=== PATIENT | male | born 1965 | race Caucasian/White ===

== ENCOUNTER 2019-02-09 13:48 | Emergency (ER) | payer MEDICAID, OTHER ==
[~2019-02-09] VITALS: Ht 175.3 cm; Wt 77.3 kg
[~2019-02-09 13:48] MED LIST: OMEP20CA4
[2019-02-09] MEDS ORDERED: FAMOTIDINE 20 MG TABLET PO ONE (15:00)
[2019-02-09 15:58] LABS: BASOPHILS % (AUTO) 1.6 % (0.0-2.0); EOSINOPHILS % (AUTO) 0.5 % (1.0-6.0); HEMATOCRIT 43.4 % (41-53); HEMOGLOBIN 14.2 g/dL (13.5-17.5); MEAN CORPUSCULAR HEMOGLOBIN 28.8 pg (26.0-34.0); MEAN CORPUSCULAR HGB CONC 32.6 G/dL (31.0-37.0); MEAN CORPUSCULAR VOLUME 88 fL (80-100); MONOCYTES # (AUTO) 0.6 K/uL (0.1-1.0); MONOCYTES % (AUTO) 10.1 % (2.0-9.0); NEUTROPHILS # (AUTO) 3.9 K/uL (1.8-7.7); NEUTROPHILS % (AUTO) 69.8 % (40.0-70.0); PLATELET COUNT (AUTO) 163 K/uL (150-450); RED BLOOD CELL COUNT(AUTO) 4.92 MIL/uL (4.50-5.90); RED CELL DISTRIBUTION WIDTH 19.5 % (11.5-14.5)
[2019-02-09 16:09] LABS: ANION GAP 11 mmol/L (8-16); CALCIUM, TOTAL 8.8 mg/dL (8.8-10.5); CARBON DIOXIDE 27 mmol/L (22-29); CHLORIDE 102 mmol/L (98-107); CREATININE 0.84 mg/dL (0.60-1.30); GLOMERULAR FILTR. RATE CALC > 60 mL/min (>60); GLUCOSE,RANDOM 92 mg/dL (70-110); POTASSIUM 3.6 mmol/L (3.5-5.1); SODIUM SERUM 140 mmol/L (136-145); UREA NITROGEN, BLOOD 10 mg/dL (7-18)
[2019-02-09 16:16] LABS: ALANINE AMINOTRANSFERASE 320 U/L (12-78); ALBUMIN 3.5 g/dL (3.4-5.0); ALKALINE PHOSPHATASE 199 U/L (46-116); ASPARTATE AMINOTRANSFERASE 210 U/L (15-37); BILIRUBIN,TOTAL 1.1 mg/dL (0.1-1.0); LIPASE 407 U/L (73-393); TOTAL PROTEIN, SERUM 8.2 g/dL (6.4-8.2)
[2019-02-09 17:00] VITALS: BP 145/88
== END 2019-02-09 17:07 | disposition home or self-care (01) ==
LOC: EMS 13:48
DX: K21.9 Gastro-esophageal reflux disease without esophagitis (principal); L25.9 Unspecified contact dermatitis, unspecified cause; R79.89 Other specified abnormal findings of blood chemistry; F10.10 Alcohol abuse, uncomplicated; Y90.9 Presence of alcohol in blood, level not specified
CPT/HCPCS: 93005

== ENCOUNTER 2019-03-29 18:48 | Emergency (ER) | payer SELFPAY ==
[~2019-03-29] VITALS: Ht 172.7 cm; Wt 69.5 kg
[2019-03-29 20:29] LABS: GLUCOSE,POINT OF CARE 123 MG/DL (70-110)
[2019-03-30] MEDS ORDERED: KETOROLAC TROMETHAMINE 60 MG/2 ML VIAL IM ONE
[2019-03-30 03:30] VITALS: BP 134/76
== END 2019-03-30 04:33 | disposition home or self-care (01) ==
LOC: EMS 18:51
DX: S00.83XA Contusion of other part of head, initial encounter (principal); F10.129 Alcohol abuse with intoxication, unspecified; Y90.8 Blood alcohol level of 240 mg/100 ml or more; Y04.0XXA Assault by unarmed brawl or fight, initial encounter; Y93.89 Activity, other specified; Y92.89 Other specified places as the place of occurrence of the external cause; Y99.8 Other external cause status
CPT/HCPCS: 36415; 70450; 82962; 96372; 99284; G0480; J1885

== ENCOUNTER 2020-12-08 09:23 | Emergency (ER) | payer OTHER ==
[~2020-12-08] VITALS: Ht 172.7 cm; Wt 68.2 kg
[2020-12-08 10:11] LABS: BASOPHILS % (AUTO) 0.5 % (0.0-2.0); EOSINOPHILS % (AUTO) 0.3 % (1.0-6.0); HEMATOCRIT 34.4 % (41-53); HEMOGLOBIN 10.8 g/dL (13.5-17.5); LYMPHOCYTES # (AUTO) 0.4 K/uL (1.0-4.8); LYMPHOCYTES % (AUTO) 7.8 % (22.0-44.0); MEAN CORPUSCULAR HEMOGLOBIN 27.1 pg (26.0-34.0); MEAN CORPUSCULAR HGB CONC 31.4 G/dL (31.0-37.0); MEAN CORPUSCULAR VOLUME 86 fL (80-100); MONOCYTES # (AUTO) 0.1 K/uL (0.1-1.0); MONOCYTES % (AUTO) 2.6 % (2.0-9.0); NEUTROPHILS # (AUTO) 4.7 K/uL (1.8-7.7); PLATELET COUNT (AUTO) 199 K/uL (150-450); RED BLOOD CELL COUNT(AUTO) 3.99 MIL/uL (4.50-5.90); RED CELL DISTRIBUTION WIDTH 19.6 % (11.5-14.5)
[2020-12-08 10:14] LABS: NEUTROPHILS % (AUTO) 88.8 % (40.0-70.0)
[2020-12-08 10:20] LABS: ANION GAP 13 mmol/L (8-16); CARBON DIOXIDE 26 mmol/L (22-29); CHLORIDE 99 mmol/L (98-107); CREATININE 1.04 mg/dL (0.60-1.30); GLOMERULAR FILTR. RATE CALC > 60 mL/min (>60); GLUCOSE,RANDOM 239 mg/dL (70-110); POTASSIUM 3.1 mmol/L (3.5-5.1); SODIUM SERUM 138 mmol/L (136-145); UREA NITROGEN, BLOOD 7 mg/dL (7-18)
[2020-12-08 10:26] LABS: ALANINE AMINOTRANSFERASE 57 U/L (12-78); ALBUMIN 3.6 g/dL (3.4-5.0); ALKALINE PHOSPHATASE 175 U/L (46-116); ASPARTATE AMINOTRANSFERASE 96 U/L (15-37); BILIRUBIN,TOTAL 1.2 mg/dL (0.1-1.0); LIPASE 227 U/L (73-393); TOTAL PROTEIN, SERUM 8.2 g/dL (6.4-8.2)
[2020-12-08] MEDS ORDERED: PB/HYOSCY/ATR/SCOP/LIDO/MAALOX 55 ML BOTTLE PO ONE (10:30)
[2020-12-08] MEDS ORDERED: ChlordiazePOXIDE HCL 25 MG CAPSULE PO ONE (10:30)
[2020-12-08] MEDS ORDERED: POTASSIUM CHLORIDE 20 MEQ ER TABLET PO ONE (11:00)
[2020-12-08 11:28] VITALS: BP 140/80
== END 2020-12-08 11:30 | disposition home or self-care (01) ==
LOC: EMS 09:23
DX: F10.20 Alcohol dependence, uncomplicated (principal); Y90.6 Blood alcohol level of 120-199 mg/100 ml
CPT/HCPCS: 36415; 80053; 83690; 84484; 85025; 93005; 99284; G0480

== ENCOUNTER 2022-02-07 17:39 | Emergency (ER) | payer OTHER ==
[~2022-02-07] VITALS: Ht 170.2 cm; Wt 75.0 kg
[2022-02-07] MEDS ORDERED: SPIR50TA27 PO (17:50)
[2022-02-07] MEDS ORDERED: THIA100T80 PO (17:50)
[2022-02-07] MEDS ORDERED: AMLO-257 PO (17:50)
[2022-02-07] MEDS ORDERED: FOLI-130 PO (17:50)
[2022-02-07] MEDS ORDERED: CARV6 PO (17:50)
[2022-02-07 19:10] LABS: ANION GAP 12 mmol/L (8-16); CALCIUM, TOTAL 8.7 mg/dL (8.8-10.5); CARBON DIOXIDE 20 mmol/L (22-29); CHLORIDE 109 mmol/L (98-107); CREATININE 0.74 mg/dL (0.60-1.30); GLOMERULAR FILTR. RATE CALC > 60 mL/min (>60); GLUCOSE,RANDOM 64 mg/dL (70-110); POTASSIUM 3.7 mmol/L (3.5-5.1); SODIUM SERUM 141 mmol/L (136-145); UREA NITROGEN, BLOOD 12 mg/dL (7-18)
[2022-02-07 19:11] LABS: BASOPHILS % (AUTO) 0.4 % (0.0-2.0); EOSINOPHILS % (AUTO) 4.6 % (1.0-6.0); HEMOGLOBIN 10.8 g/dL (13.5-17.5); LYMPHOCYTES # (AUTO) 0.8 K/uL (1.0-4.8); LYMPHOCYTES % (AUTO) 20.7 % (22.0-44.0); MEAN CORPUSCULAR HEMOGLOBIN 25.5 pg (26.0-34.0); MEAN CORPUSCULAR HGB CONC 31.9 G/dL (31.0-37.0); MEAN CORPUSCULAR VOLUME 80 fL (80-100); MONOCYTES # (AUTO) 0.3 K/uL (0.1-1.0); MONOCYTES % (AUTO) 9.1 % (2.0-9.0); NEUTROPHILS # (AUTO) 2.5 K/uL (1.8-7.7); NEUTROPHILS % (AUTO) 65.2 % (40.0-70.0); RED BLOOD CELL COUNT(AUTO) 4.26 MIL/uL (4.50-5.90); RED CELL DISTRIBUTION WIDTH 18.9 % (11.5-14.5)
[2022-02-07 19:15] LABS: ALANINE AMINOTRANSFERASE 41 U/L (12-78); ALKALINE PHOSPHATASE 125 U/L (46-116); ASPARTATE AMINOTRANSFERASE 43 U/L (15-37); BILIRUBIN,TOTAL 0.9 mg/dL (0.1-1.0); TOTAL PROTEIN, SERUM 7.2 g/dL (6.4-8.2)
[2022-02-07 19:34] LABS: PLATELET COUNT (AUTO) 72 K/uL (150-450)
[2022-02-07 19:39] LABS: COVID AG,FIA SOURCE NASOPHARYNGEAL
[2022-02-07 20:07] VITALS: BP 120/90
== END 2022-02-07 23:42 | disposition home or self-care (01) ==
LOC: EMS 17:40
DX: F32.9 Major depressive disorder, single episode, unspecified (principal); F10.10 Alcohol abuse, uncomplicated; D69.6 Thrombocytopenia, unspecified; I10 Essential (primary) hypertension; Y90.0 Blood alcohol level of less than 20 mg/100 ml; Z79.899 Other long term (current) drug therapy; Z20.822 Contact with and (suspected) exposure to COVID-19
CPT/HCPCS: 36415; 80053; 85025; 87426; 99283; G0480

== ENCOUNTER 2024-05-16 07:29 | Inpatient (IN) | payer OTHER ==
[~2024-05-16] VITALS: Ht 170.2 cm; Wt 85.3 kg
[~2024-05-16 07:29] MED LIST changes: +AMLO-257 PO; +FOLI-130 PO; -OMEP20CA4; +THIA100T80 PO
[2024-05-16] MEDS ORDERED: LORazepam 2 MG/ML VIAL ONE (08:02)
[2024-05-16] MEDS: SODIUM CHLORIDE 0.9% 1,000 ML IV ONE (08:07)
[2024-05-16] MEDS: LORazepam 2 MG/ML VIAL IVP ONE ×3 (08:07→12:57)
[2024-05-16 08:21] LABS: BASOPHILS % (AUTO) 0.2 % (0.0-2.0); EOSINOPHILS % (AUTO) 0.2 % (1.0-6.0); HEMATOCRIT 45.3 % (41-53); HEMOGLOBIN 15.2 g/dL (13.5-17.5); LYMPHOCYTES # (AUTO) 0.9 K/uL (1.0-4.8); LYMPHOCYTES % (AUTO) 7.4 % (22.0-44.0); MEAN CORPUSCULAR HEMOGLOBIN 28.7 pg (26.0-34.0); MEAN CORPUSCULAR HGB CONC 33.6 G/dL (31.0-37.0); MEAN CORPUSCULAR VOLUME 85 fL (80-100); MONOCYTES # (AUTO) 1.2 K/uL (0.1-1.0); MONOCYTES % (AUTO) 9.1 % (2.0-9.0); NEUTROPHILS # (AUTO) 10.6 K/uL (1.8-7.7); NEUTROPHILS % (AUTO) 83.1 % (40.0-70.0); PLATELET COUNT (AUTO) 124 K/uL (150-450); RED BLOOD CELL COUNT(AUTO) 5.31 MIL/uL (4.50-5.90); RED CELL DISTRIBUTION WIDTH 14.6 % (11.5-14.5); WHITE BLOOD COUNT (AUTO) 12.7 K/uL (4.5-11.0)
[2024-05-16 08:29] LABS: ANION GAP 18 mmol/L (8-16); CALCIUM, TOTAL 8.6 mg/dL (8.8-10.5); CARBON DIOXIDE 20 mmol/L (22-29); CHLORIDE 90 mmol/L (98-107); CREATININE 1.11 mg/dL (0.60-1.30); GLOMERULAR FILTR. RATE CALC > 60 mL/min (>60); GLUCOSE,RANDOM 122 mg/dL (70-110); POTASSIUM 4.1 mmol/L (3.5-5.1); SODIUM SERUM 128 mmol/L (136-145); UREA NITROGEN, BLOOD 10 mg/dL (7-18)
[2024-05-16 08:31] LABS: ALCOHOL, BLOOD (SERUM) < 3 mg/dL (0-10)
[2024-05-16 08:37] LABS: ALANINE AMINOTRANSFERASE 44 U/L (12-78); ALBUMIN 3.8 g/dL (3.4-5.0); ALKALINE PHOSPHATASE 94 U/L (46-116); ASPARTATE AMINOTRANSFERASE 92 U/L (15-37); BILIRUBIN,TOTAL 4.7 mg/dL (0.1-1.0); TOTAL PROTEIN, SERUM 7.6 g/dL (6.4-8.2)
[2024-05-16 09:09] LABS: ALCOHOL, URINE DRUG SCREEN NEGATIVE (NEGATIVE); AMPHET/METH SCREEN,URINE NEGATIVE (NEGATIVE); BENZODIAZEPINES SCREEN,URINE NEGATIVE (NEGATIVE); CANNABINOID SCREEN,URINE NEGATIVE (NEGATIVE); COCAINE SCREEN,URINE NEGATIVE (NEGATIVE); METHADONE SCREEN, URINE NEGATIVE (NEGATIVE); OPIATE SCREEN,URINE NEGATIVE (NEGATIVE); PHENCYCLIDINE SCREEN,URINE NEGATIVE (NEGATIVE)
[2024-05-16] MEDS: LevETIRAcetam 1,000 MG in DEXTROSE 5%-WATER 100 ML IV ONE (09:16)
[2024-05-16 09:19] LABS: BARBITURATE SCREEN, URINE NEGATIVE (NEGATIVE)
[2024-05-16] MEDS: LACTULOSE 200 GM/300 ML RECTAL SOLUTION PR ONE (10:35)
[2024-05-16 12:54] VITALS: BP 124/72; PULSE 74; RESP 18; TEMP 98.5; O2SAT 99
[2024-05-16] MEDS ORDERED: LORazepam 2 MG/ML VIAL IVP PRN (14:00)
[2024-05-16] MEDS ORDERED: MORPHINE SULFATE 2 MG/ML SYRINGE IVP PRN (14:00)
[2024-05-16] MEDS ORDERED: ChlordiazePOXIDE HCL 25 MG CAPSULE PO PRN (14:00)
[2024-05-16] MEDS ORDERED: MAGNESIUM HYDROXIDE SUSPENSION 30 ML UDCUP PO PRN (14:00)
[2024-05-16] MEDS ORDERED: BISACODYL 10 MG RECTAL RECTAL SUPPOSITORY PR PRN (14:00)
[2024-05-16] MEDS ORDERED: ONDANSETRON HCL 4 MG/2 ML VIAL IVP PRN (14:00)
[2024-05-16] MEDS: 1: MAGNESIUM SULFATE 2 GM, MVI, ADULT NO.1 WITH VIT K 10 ML, THIAMINE 100 MG, FOLIC ACID IV SCH (15:56)
[2024-05-16] MEDS: HEPARIN SODIUM,PORCINE 5,000 UNITS/ML VIAL SQ SCH (16:00)
[2024-05-16 18:50] VITALS: BP 127/82; PULSE 62; RESP 20; O2SAT 99
[2024-05-16 20:48] VITALS: BP 131/68; PULSE 62; RESP 19; O2SAT 98
[2024-05-16] MEDS: DOCUSATE SODIUM 100 MG CAPSULE PO SCH (21:00)
[2024-05-16 21:48] VITALS: BP 121/74; PULSE 64; RESP 19; O2SAT 95
[2024-05-16 22:49] VITALS: BP 120/76; PULSE 60; RESP 19; O2SAT 96
[2024-05-17] MEDS ORDERED: SODIUM CHLORIDE 0.9% 1,000 ML ONE (03:08)
[2024-05-17 06:03] VITALS: BP 106/71; PULSE 60; RESP 19; O2SAT 95
[2024-05-17] MEDS ORDERED: ChlordiazePOXIDE HCL 25 MG CAPSULE PO PRN (07:00)
[2024-05-17 07:20] VITALS: BP 123/55; PULSE 55; RESP 18; TEMP 97.5; O2SAT 100
[2024-05-17 07:20] LABS: ANION GAP 9 mmol/L (8-16); CALCIUM, TOTAL 7.5 mg/dL (8.8-10.5); CARBON DIOXIDE 23 mmol/L (22-29); CHLORIDE 100 mmol/L (98-107); GLOMERULAR FILTR. RATE CALC > 60 mL/min (>60); GLUCOSE,RANDOM 94 mg/dL (70-110); POTASSIUM 3.2 mmol/L (3.5-5.1); SODIUM SERUM 132 mmol/L (136-145); UREA NITROGEN, BLOOD 7 mg/dL (7-18)
[2024-05-17] MEDS: AmLODIPine BESYLATE 5 MG TABLET PO SCH (08:36)
[2024-05-17] MEDS: ChlordiazePOXIDE HCL 25 MG CAPSULE PO SCH (08:36)
[2024-05-17] MEDS: THIAMINE 100 MG TABLET PO SCH (08:37)
[2024-05-17] MEDS: PANTOPRAZOLE SODIUM 40 MG DR TABLET PO SCH (08:37)
[2024-05-17 09:38] LABS: BASOPHILS % (AUTO) 0.1 % (0.0-2.0); EOSINOPHILS % (AUTO) 0.4 % (1.0-6.0); HEMATOCRIT 43.7 % (41-53); HEMOGLOBIN 14.7 g/dL (13.5-17.5); LYMPHOCYTES # (AUTO) 0.6 K/uL (1.0-4.8); LYMPHOCYTES % (AUTO) 10.5 % (22.0-44.0); MEAN CORPUSCULAR HEMOGLOBIN 28.8 pg (26.0-34.0); MEAN CORPUSCULAR HGB CONC 33.6 G/dL (31.0-37.0); MEAN CORPUSCULAR VOLUME 86 fL (80-100); MONOCYTES # (AUTO) 0.6 K/uL (0.1-1.0); MONOCYTES % (AUTO) 9.4 % (2.0-9.0); NEUTROPHILS # (AUTO) 4.9 K/uL (1.8-7.7); NEUTROPHILS % (AUTO) 79.6 % (40.0-70.0); RED BLOOD CELL COUNT(AUTO) 5.11 MIL/uL (4.50-5.90); RED CELL DISTRIBUTION WIDTH 14.3 % (11.5-14.5); WHITE BLOOD COUNT (AUTO) 6.2 K/uL (4.5-11.0)
[2024-05-17 10:17] LABS: PLATELET COUNT (AUTO) 82 K/uL (150-450)
[2024-05-17 11:15] VITALS: BP 105/69; PULSE 74; RESP 18; TEMP 98.3; O2SAT 95
[2024-05-17] MEDS ORDERED: POTASSIUM CHL 10 MEQ/WATER 50 ML IV PRN (12:30)
[2024-05-17] MEDS ORDERED: LACTULOSE 200 GM/300 ML RECTAL SOLUTION PR SCH (12:30)
[2024-05-17 15:03] VITALS: BP 109/76; PULSE 70; RESP 18; TEMP 98.9; O2SAT 96
[2024-05-17] MEDS ORDERED: LACTULOSE 20 GM/30 ML SOLUTION UDCUP PO SCH (16:00)
[2024-05-17] MEDS: LACTULOSE 20 GM/30 ML SOLUTION UDCUP PO SCH (16:37)
[2024-05-17] MEDS: POTASSIUM CHLORIDE 20 MEQ ER TABLET PO PRN (16:38)
[2024-05-17] MEDS: HYDROCODONE/ACETAMINOPHEN 5-325 MG TABLET PO PRN (18:30)
[2024-05-17 19:29] VITALS: BP 126/78; PULSE 77; RESP 18; TEMP 98.2; O2SAT 96
[2024-05-18 00:07] VITALS: BP 124/82; PULSE 74; RESP 18; O2SAT 95
[2024-05-18] MEDS: ZOLPIDEM TARTRATE 5 MG TABLET PO PRN (02:43)
[2024-05-18 06:05] VITALS: BP 119/79; PULSE 75; RESP 18; TEMP 98.3; O2SAT 96
[2024-05-18] MEDS: ACETAMINOPHEN 325 MG TABLET PO PRN (06:25)
[2024-05-18 06:27] LABS: ANION GAP 7 mmol/L (8-16); CALCIUM, TOTAL 7.8 mg/dL (8.8-10.5); CARBON DIOXIDE 25 mmol/L (22-29); CHLORIDE 105 mmol/L (98-107); CREATININE 0.73 mg/dL (0.60-1.30); GLOMERULAR FILTR. RATE CALC > 60 mL/min (>60); GLUCOSE,RANDOM 122 mg/dL (70-110); POTASSIUM 3.8 mmol/L (3.5-5.1); SODIUM SERUM 137 mmol/L (136-145); UREA NITROGEN, BLOOD 7 mg/dL (7-18)
[2024-05-18 06:39] LABS: BASOPHILS % (AUTO) 0.8 % (0.0-2.0); EOSINOPHILS % (AUTO) 2.7 % (1.0-6.0); HEMATOCRIT 41.6 % (41-53); HEMOGLOBIN 13.8 g/dL (13.5-17.5); LYMPHOCYTES # (AUTO) 0.7 K/uL (1.0-4.8); LYMPHOCYTES % (AUTO) 16.8 % (22.0-44.0); MEAN CORPUSCULAR HEMOGLOBIN 28.8 pg (26.0-34.0); MEAN CORPUSCULAR HGB CONC 33.1 G/dL (31.0-37.0); MEAN CORPUSCULAR VOLUME 87 fL (80-100); MONOCYTES # (AUTO) 0.5 K/uL (0.1-1.0); MONOCYTES % (AUTO) 11.6 % (2.0-9.0); NEUTROPHILS # (AUTO) 2.7 K/uL (1.8-7.7); NEUTROPHILS % (AUTO) 68.1 % (40.0-70.0); RED BLOOD CELL COUNT(AUTO) 4.79 MIL/uL (4.50-5.90); RED CELL DISTRIBUTION WIDTH 15.2 % (11.5-14.5)
[2024-05-18 07:38] LABS: PLATELET COUNT (AUTO) 52 K/uL (150-450)
[2024-05-18 07:41] VITALS: BP 113/74; PULSE 71; RESP 18; TEMP 97.7; O2SAT 95
[2024-05-18] MEDS: FOLIC ACID 1 MG TABLET PO SCH (08:30)
[2024-05-18 11:32] VITALS: BP 119/82; PULSE 70; RESP 17; TEMP 97.6; O2SAT 96
[2024-05-18 15:24] VITALS: BP 110/82; PULSE 82; RESP 18; TEMP 97.2; O2SAT 97
[2024-05-18 19:20] VITALS: BP 116/79; PULSE 88; RESP 18; TEMP 98.3; O2SAT 97
[2024-05-19 00:44] VITALS: BP 109/81; PULSE 75; RESP 18; TEMP 98; O2SAT 98
[2024-05-19 03:40] VITALS: BP 121/81; PULSE 70; RESP 18; TEMP 97.7; O2SAT 98
[2024-05-19 06:33] LABS: BASOPHILS % (AUTO) 0.4 % (0.0-2.0); EOSINOPHILS % (AUTO) 7.3 % (1.0-6.0); HEMATOCRIT 42.2 % (41-53); HEMOGLOBIN 14.2 g/dL (13.5-17.5); LYMPHOCYTES # (AUTO) 0.8 K/uL (1.0-4.8); LYMPHOCYTES % (AUTO) 23.3 % (22.0-44.0); MEAN CORPUSCULAR HEMOGLOBIN 29.2 pg (26.0-34.0); MEAN CORPUSCULAR HGB CONC 33.6 G/dL (31.0-37.0); MEAN CORPUSCULAR VOLUME 87 fL (80-100); MONOCYTES # (AUTO) 0.3 K/uL (0.1-1.0); NEUTROPHILS # (AUTO) 2.1 K/uL (1.8-7.7); PLATELET COUNT (AUTO) 71 K/uL (150-450); RED BLOOD CELL COUNT(AUTO) 4.85 MIL/uL (4.50-5.90); RED CELL DISTRIBUTION WIDTH 14.7 % (11.5-14.5); WHITE BLOOD COUNT (AUTO) 3.4 K/uL (4.5-11.0)
[2024-05-19] MEDS ORDERED: ChlordiazePOXIDE HCL 10 MG CAPSULE PO PRN (07:00)
[2024-05-19 07:14] LABS: ANION GAP 11 mmol/L (8-16); CALCIUM, TOTAL 7.9 mg/dL (8.8-10.5); CARBON DIOXIDE 22 mmol/L (22-29); CHLORIDE 102 mmol/L (98-107); GLOMERULAR FILTR. RATE CALC > 60 mL/min (>60); GLUCOSE,RANDOM 95 mg/dL (70-110); POTASSIUM 3.7 mmol/L (3.5-5.1); SODIUM SERUM 135 mmol/L (136-145); UREA NITROGEN, BLOOD 8 mg/dL (7-18)
[2024-05-19 08:00] VITALS: BP 123/89; PULSE 69; RESP 16; TEMP 97.7; O2SAT 95
[2024-05-19] MEDS: ChlordiazePOXIDE HCL 10 MG CAPSULE PO SCH (10:42)
[2024-05-19 12:00] VITALS: BP 105/71; PULSE 77; RESP 16; TEMP 98.2; O2SAT 99
[2024-05-19] MEDS ORDERED: LACT10SO10 PO (12:49)
[2024-05-19] MEDS ORDERED: AMLO-257 PO (12:49)
[2024-05-19] MEDS ORDERED: CHLO10CA7 PO (13:14)
[2024-05-19 16:00] VITALS: BP 105/75; PULSE 76; RESP 16; TEMP 98.2; O2SAT 95
[2024-05-19 20:24] VITALS: BP 122/77; PULSE 80; RESP 18; TEMP 97.6; O2SAT 97
[2024-05-20 00:06] VITALS: BP 102/68; PULSE 71; RESP 16; TEMP 97.9; O2SAT 95
[2024-05-20 05:02] VITALS: BP 108/76; PULSE 70; RESP 16; TEMP 98; O2SAT 97
[2024-05-20] MEDS ORDERED: ChlordiazePOXIDE HCL 10 MG CAPSULE PO PRN (07:00)
[2024-05-20 09:27] VITALS: BP 113/81; PULSE 87; RESP 17; TEMP 97.5; O2SAT 95
[2024-05-20 13:18] VITALS: BP 118/82; PULSE 80; RESP 18; TEMP 97.7; O2SAT 94
[2024-05-20 16:42] VITALS: BP 109/79; PULSE 72; RESP 18; TEMP 97.7; O2SAT 97
== END 2024-05-20 19:55 | DRG 53 ==
LOC: EMS 07:29 → EDH 11:00 → 5N 12:30 → 5S 16:35
PROVIDERS: ADMIT Internal Medicine; ATTEND Internal Medicine
DX: G40.509 Epileptic seizures related to external causes, not intractable, without status epilepticus (principal); J96.91 Respiratory failure, unspecified with hypoxia; G92.8 Other toxic encephalopathy; G04.81 Other encephalitis and encephalomyelitis; K76.82 Hepatic encephalopathy; E72.20 Disorder of urea cycle metabolism, unspecified; E87.1 Hypo-osmolality and hyponatremia; R65.10 Systemic inflammatory response syndrome (SIRS) of non-infectious origin without acute organ dysfunction; I10 Essential (primary) hypertension; D64.9 Anemia, unspecified; F10.229 Alcohol dependence with intoxication, unspecified; F10.239 Alcohol dependence with withdrawal, unspecified; Z59.00 Homelessness unspecified; Z79.899 Other long term (current) drug therapy
CPT/HCPCS: 70450; 71045; 80048; 80076; 80307; 82140; 84132; 85025; 93005; 97116; 97162; 97530; 99285; G0480; J0712; J1644; J2060; J3411; J3475; J3490; J7030; J7060; 36415-L1; 36415-TC

== ENCOUNTER 2025-03-16 19:55 | Emergency (ER) | payer OTHER ==
[~2025-03-16] VITALS: Ht 175.3 cm; Wt 77.3 kg
[~2025-03-16 19:55] MED LIST changes: -AMLO-257 PO; +AMOX-457 PO; +ATOR20TA65 PO; +CALC200T31 PO; +FAMO20 PO; +GABA-534 PO; +LACT10SO9 PO; +LIDO1ADH72 TD; +METO25 PO; +OMEP20CA12 PO; +OXYC5 PO
[2025-03-16 20:31] LABS: PLATELET COUNT (AUTO) 124 K/uL (150-450); RED BLOOD CELL COUNT(AUTO) 4.25 MIL/uL (4.50-5.90); RED CELL DISTRIBUTION WIDTH 15.3 % (11.5-14.5); WHITE BLOOD COUNT (AUTO) 12.9 K/uL (4.5-11.0)
[2025-03-16] MEDS ORDERED: IOHEXOL 350 MG/ML 100 ML VIAL ONE (20:31)
[2025-03-16] MEDS ORDERED: SODIUM CHLORIDE 0.9% 100 ML ONE (20:31)
[2025-03-16] MEDS ORDERED: 0.9% SODIUM CHLORIDE 10 ML SYRINGE IVP ONE (20:31)
[2025-03-16 20:41] LABS: CALCIUM, TOTAL 8.5 mg/dL (8.8-10.5); CREATININE 0.63 mg/dL (0.60-1.30); GLOMERULAR FILTR. RATE CALC > 60 mL/min (>60); GLUCOSE,RANDOM 125 mg/dL (70-110); SODIUM SERUM 134 mmol/L (136-145); UREA NITROGEN, BLOOD 16 mg/dL (7-18)
[2025-03-16 20:46] LABS: ASPARTATE AMINOTRANSFERASE 42.0 U/L (15-37); TOTAL PROTEIN, SERUM 6.7 g/dL (6.4-8.2)
[2025-03-16] MEDS: MORPHINE SULFATE 2 MG/ML SYRINGE IVP ONE (21:11)
[2025-03-17 08:19] VITALS: BP 127/85; PULSE 69; RESP 16; TEMP 98.3; O2SAT 97
== END 2025-03-17 10:18 | disposition short-term general hospital (02) ==
LOC: EMS 19:55
DX: T81.40XA Infection following a procedure, unspecified, initial encounter (principal); K83.8 Other specified diseases of biliary tract; I10 Essential (primary) hypertension; F10.90 Alcohol use, unspecified, uncomplicated; Z86.19 Personal history of other infectious and parasitic diseases; Z90.49 Acquired absence of other specified parts of digestive tract; Z79.899 Other long term (current) drug therapy; Z59.00 Homelessness unspecified; X58.XXXA Exposure to other specified factors, initial encounter; Y90.9 Presence of alcohol in blood, level not specified
CPT/HCPCS: 99285; 74177; 96374; 96375; 80048; 80076; 83690; 85025; 36415; 96376; Q9967; J1171 ×2; J2270; J7050

== ENCOUNTER 2025-07-16 15:47 | Emergency (ER) | payer OTHER ==
[~2025-07-16] VITALS: Ht 175.3 cm; Wt 72.7 kg
[2025-07-16 15:49] VITALS: TEMP 98.5
[2025-07-16 16:51] LABS: CALCIUM, TOTAL 8.4 mg/dL (8.8-10.5); CREATININE 0.56 mg/dL (0.60-1.30); GLOMERULAR FILTR. RATE CALC > 60 mL/min (>60); GLUCOSE,RANDOM 155 mg/dL (70-110); SODIUM SERUM 132 mmol/L (136-145); UREA NITROGEN, BLOOD 14 mg/dL (7-18)
[2025-07-16 16:58] LABS: ALCOHOL, BLOOD (SERUM) < 3 mg/dL (0-10)
[2025-07-16 17:01] LABS: TROPONIN I-HIGH SENSITIVITY 7 ng/L (<76)
[2025-07-16 17:15] LABS: RED BLOOD CELL COUNT(AUTO) 4.64 MIL/uL (4.50-5.90); RED CELL DISTRIBUTION WIDTH 15.7 % (11.5-14.5); WHITE BLOOD COUNT (AUTO) 3.5 K/uL (4.5-11.0)
[2025-07-16 17:26] LABS: PLATELET COUNT (AUTO) 69 K/uL (150-450); RBC MORPHOLOGY COMMENT NORMAL RBC MORPH
[2025-07-16 17:36] LABS: APPEARANCE,URINE CLEAR (CLEAR); GLUCOSE, URINE (UA) NEGATIVE (NEGATIVE); LEUKOCYTE ESTERASE ,URINE NEGATIVE (NEGATIVE); NITRATE,URINE NEGATIVE (NEGATIVE); OCCULT BLOOD,URINE NEGATIVE (NEGATIVE); PH,URINE DRUG SCREEN 6.5 (5.0-8.0); SPECIFIC GRAVITIY, URINE 1.009 (1.003-1.030)
[2025-07-16 17:43] LABS: AMPHET/METH SCREEN,URINE POSITIVE (NEGATIVE); BARBITURATE SCREEN, URINE NEGATIVE (NEGATIVE); CANNABINOID SCREEN,URINE NEGATIVE (NEGATIVE); COCAINE SCREEN,URINE NEGATIVE (NEGATIVE); METHADONE SCREEN, URINE NEGATIVE (NEGATIVE)
[2025-07-16 17:44] LABS: ALCOHOL, URINE DRUG SCREEN NEGATIVE (NEGATIVE)
[2025-07-16 17:48] LABS: SQUAMOUS EPITHELIAL CELL,UR Rare /LPF (None Seen)
[2025-07-16] MEDS ORDERED: HYDR-4062 PO (18:05)
[2025-07-16] MEDS ORDERED: LACT10SO85 PO (18:05)
[2025-07-16 18:18] VITALS: BP 129/86; PULSE 70; RESP 16; O2SAT 97
== END 2025-07-16 19:30 | disposition home or self-care (01) ==
LOC: EMS 15:47
DX: K29.00 Acute gastritis without bleeding (principal); B19.20 Unspecified viral hepatitis C without hepatic coma; R10.13 Epigastric pain; R07.89 Other chest pain; F15.10 Other stimulant abuse, uncomplicated; K64.9 Unspecified hemorrhoids; K59.00 Constipation, unspecified; K74.60 Unspecified cirrhosis of liver; F10.20 Alcohol dependence, uncomplicated; I10 Essential (primary) hypertension; Z90.49 Acquired absence of other specified parts of digestive tract; Z86.19 Personal history of other infectious and parasitic diseases; Z59.00 Homelessness unspecified; Z79.899 Other long term (current) drug therapy
CPT/HCPCS: 99285; 71045; 80048; 81001; 82140; 82271; 83690; 83735; 84484; 85025; 85610; 36415; 93005; 80307; G0480